=== PATIENT | female | born 1990 | race Caucasian/White ===

== ENCOUNTER 2021-02-23 14:22 | Outpatient (REF) | payer MEDICAID, SELFPAY | END 2021-02-23 14:23 | disposition home or self-care (01) | LOC: HO.SCI 14:22 | DX: Z13.89 Encounter for screening for other disorder (principal) ==

== ENCOUNTER 2021-07-04 09:48 | Outpatient (REF) | payer MEDICAID, SELFPAY ==
[2021-07-06 05:56] LABS: CT PCR NOT DETECTED (Not Detect.); NG PCR NOT DETECTED (Not Detect.)
[2021-07-06 11:03] LABS: BV Int Neg Control Negative (Negative); BV Int Pos Control Positive (Positive)
[2021-07-07 18:26] LABS: HPV mRNA E6/E7 rflx Not Detected (Not Detected)
== END 2021-07-04 09:49 | disposition home or self-care (01) ==
LOC: HO.LAB 09:48
PROVIDERS: Visit Provider Advanced Practice Midwife
DX: N92.0 Excessive and frequent menstruation with regular cycle (principal); N85.2 Hypertrophy of uterus; Z20.2 Contact with and (suspected) exposure to infections with a predominantly sexual mode of transmission
CPT/HCPCS: 87480; 87491; 87510; 87591; 87624; 87660; 88142; 99202

== ENCOUNTER 2021-07-12 11:06 | Outpatient (REF) | payer MEDICAID, SELFPAY ==
--- NOTE | ~2021-07-12 | US_ITS ---
EXAMINATION: US PELVIS CLINICAL INFORMATION: Frequent menstruation COMPARISON: None TECHNIQUE: Ultrasound of the pelvis is performed using both transabdominal and transvaginal transducers along with Doppler. Transvaginal imaging is performed due to inadequate visualization transabdominally. FINDINGS: The uterus is anteverted and measures 9.2 x 3.3 x 6.5 cm in dimension. There is a large right uterine body fibroid measuring 5.6 x 4.9 x 5.6 cm in dimension. No other focal uterine lesion is seen. Endometrial thickness is normal measuring 1.2 cm. The ovaries are seen transabdominally only. The ovaries are normal-appearing. The right ovary measures 2.3 x 1.6 x 3 cm and the left ovary measures 2.8 x 1.3 x 1.7 cm. There is no fluid in the pelvis. US/US pelvic and transvaginal IMPRESSION: Large right uterine body fibroid. Otherwise unremarkable exam.
== END 2021-07-12 11:07 | disposition home or self-care (01) ==
LOC: HO.US 11:06
PROVIDERS: Visit Provider Advanced Practice Midwife
DX: N92.0 Excessive and frequent menstruation with regular cycle (principal); N85.2 Hypertrophy of uterus
CPT/HCPCS: 76830; 76856

== ENCOUNTER → 2021-08-01 10:45 | Outpatient (BNVA) | payer MEDICAID, SELFPAY | PROVIDERS: Visit Provider Advanced Practice Midwife | DX: N85.2 Hypertrophy of uterus (principal); N92.0 Excessive and frequent menstruation with regular cycle; D25.9 Leiomyoma of uterus, unspecified; D50.0 Iron deficiency anemia secondary to blood loss (chronic); E04.1 Nontoxic single thyroid nodule | CPT/HCPCS: 99212 ==

== ENCOUNTER 2021-10-10 09:42 | Outpatient (REF) | payer MEDICAID, SELFPAY ==
--- NOTE | ~2021-10-10 | US_ITS ---
EXAMINATION: US THYROID CLINICAL INFORMATION: Single thyroid nodule. COMPARISON: None TECHNIQUE: Linear transducer grayscale and color Doppler examination with attention to the region of the thyroid. FINDINGS: SIZE: Measurements of the thyroid lobes and nodules are given in sagittal, anteroposterior and transverse dimensions respectively. Right Thyroid Lobe: 5.48 x 1.89 x 1.76 cm, volume 9.54 mL. Parenchyma: The gland echotexture is heterogeneous. Thyroid vascularity is normal. Left Thyroid Lobe: 5.48 x 1.54 x 1.47 cm, volume 6.52 mL. Parenchyma: The gland echotexture is homogeneous. Thyroid vascularity is normal. Isthmus: 0.49 cm in maximum AP dimension. Estimated total number of nodules greater than or equal to 1 cm: 1. [employer] nodules are described as follows: 1. Location: Isthmus, left. Size: 0.61 x 0.33 x 0.74 cm, volume 0.08 mL. Nodule characteristics: Composition: Mixed cystic and solid (1). Echogenicity: Hypoechoic (2). Shape: Not taller than wide (0). Margins: Smooth (0). Echogenic Foci: None (0). ACR TI-RADS total points: 3 ACR TI-RADS category: 3 2. Location: Isthmus, right. Size: 0.77 x 0.43 x 0.68 cm, volume 0.12 mL. Nodule characteristics: Composition: Spongiform (0). Echogenicity: 0 Shape: 0 Margins: 0 Echogenic Foci: 0 ACR TI-RADS total points: 0 ACR TI-RADS category: 1 3. Location: Right midpole. Size: 0.84 x 0.59 x 0.77 cm, volume 0.20 mL. Nodule characteristics: Composition: Spongiform (0). Echogenicity: 0 Shape: 0 Margins: 0 Echogenic Foci: 0 ACR TI-RADS total points: 0 ACR TI-RADS category: 1 4. Location: Right midpole. Size: 1.1 x 0.67 x 0.95 cm, volume 0.36 mL. Nodule characteristics: Composition: Spongiform (0). Echogenicity: 0 Shape: 0 Margins: 0 Echogenic Foci: 0 ACR TI-RADS total points: 0 ACR TI-RADS category: 1 5. Location: Left midpole. Size: 0.46 x 0.25 x 0.34 cm, volume 0.02 mL. Nodule characteristics: Composition: Spongiform (0). Echogenicity: 0 Shape: 0 Margins: 0 Echogenic Foci: 0 ACR TI-RADS total points: 0 ACR TI-RADS category: 1 Significant change in size (>/= 20% in 2 dimensions and minimal increase of 2 mm or 50% or greater increase in volume): None Change in features: None Change in ACR TI-RADS risk category: Not applicable. NODES: No lymphadenopathy is seen in the tissue surrounding the thyroid gland. US/US thyroid IMPRESSION: Heterogeneous right lobe slightly enlarged with multiple subcentimeter nodules largest measuring 1.1 cm. Normal left thyroid lobe size with solitary subcentimeter nodule, nonsuspicious. ACR TI-RADS RECOMMENDATION REFERENCE: Ultrasound-guided fine-needle aspiration, followup ultrasound, no further follow up. * TR1 (0 point) and TR 2 (2 points): No FNA or follow up * TR3 (3 points): FNA if more than or equal to 2.5 cm in maximum dimension, followup ultrasound in 1, 3 and 5 years if 1.5 to 2.4 cm in maximum dimension. * TR4 (4-6 points): FNA if more than or equal to 1.5 cm in maximum dimension, followup ultrasound in 1, 2, 3 and 5 years if 1 to 1.4 cm in maximum dimension. * TR5 (more than or equal to 7 points): FNA if more than or equal to 1 cm in maximum dimension, followup ultrasound every year for 5 years if 0.5 to 0.9 cm in maximum dimension. * TR3, TR4 or TR5 nodules that are below the size threshold for follow up receive no follow up.
== END 2021-10-10 09:43 | disposition home or self-care (01) ==
LOC: HO.US 09:42
PROVIDERS: Visit Provider Internal Medicine
DX: E04.1 Nontoxic single thyroid nodule (principal)
CPT/HCPCS: 76536